=== PATIENT | female | born 1995 | race African-American/Black ===

== ENCOUNTER 2021-02-17 19:52 | Inpatient (IN) ==
[2021-02-17] MEDS ORDERED: MEPERIDINE 50 MG/1 ML VIAL IV PRN (20:02)
[2021-02-17] MEDS ORDERED: BUTORPHANOL 2 MG/ML VIAL IV PRN (20:02)
[2021-02-17] MEDS ORDERED: ONDANSETRON 4 MG/2 ML VIAL IV PRN (20:02)
[2021-02-17 20:21] LABS: Basophils % 0.2 % (0.0-0.8); Eosinophils % 0.2 % (0.00-10.9); Hematocrit 35.6 VOL% (35.7-47.0); Hemoglobin 11.2 GM/DL (12.0-16.0); Immature Granulocytes % 0.4 %; Immature Granulocytes Absolute 0.04 #; Lymphocytes # 1.8 10*3/uL (1.4-4.0); Lymphocytes % 19.2 % (21.3-54.2); Mean Corpuscular HGB Conc 31.5 GM/DL (32-36); Mean Corpuscular Volume 89.2 FL (87-102); Mean Platelet Volume 11.5 FL (9.6-12.0); Monocytes % 8.9 % (1.7-12.7); Neutrophils % 71.1 % (38.7-73.9); Platelet Count 221 T/CUMM (130-400); Red Blood Count 3.99 MC/CUMM (3.8-5.5); Red Cell Distribution Width 15.9 % (9.3-17.3); White Blood Count 9.5 T/CUMM (4-12)
[2021-02-17 20:48] LABS: Albumin 2.8 G/DL (3.4-5.0); Bilirubin,Total 0.5 MG/DL (0.2-1.0); Calcium 8.7 MG/DL (8.5-10.1); Osmolality,Calculated 268.8 MOS/KG (273-304); Potassium 3.5 MMOL/L (3.5-5.1); Total Protein 7.4 G/DL (5.0-7.5)
[2021-02-17] MEDS: LACTATED RINGERS 1,000 ML IV SCH (21:41)
[2021-02-17] MEDS ORDERED: FAMOTIDINE 20 MG/2 ML VIAL IV PRN (21:42)
[2021-02-17] MEDS ORDERED: CITRIC ACID/SODIUM CITRATE 30 ML UDCUP PO PRN (21:43)
[2021-02-18] MEDS: LACTATED RINGERS 1,000 ML IV SCH ×3 (02:07→10:27)
[2021-02-18] MEDS ORDERED: ePHEDrine 50 MG/ML VIAL IV PRN (03:00)
[2021-02-18] MEDS ORDERED: PROMETHAZINE 25 MG/1 ML VIAL IM ONE (03:00)
[2021-02-18] MEDS ORDERED: NALOXONE 0.4 MG/ML VIAL IV PRN (03:00)
[2021-02-18] MEDS ORDERED: fentaNYL 2 MCG/ROPIV 0.2% EPID 100 ML EPIDURAL SCH (03:00)
[2021-02-18] MEDS ORDERED: diphenhydrAMINE 50 MG/1 ML VIAL IV PRN ×2 (03:00)
[2021-02-18 04:48] LABS: Amorphous Crystals,Urine Few /HPF (Few); Bilirubin,Urine Negative (Negative); Blood, Urine Negative (Negative); Glucose,Urine (UA) Negative (Negative); Ketones,Urine 5 mg/dL (Negative); Mucus,Urine Few /LPF (Occasional); Nitrite,Urine Negative (Negative); Protein,Urine 30 MG/DL; RBC,Urine 1 /HPF (0-4); Squamous Epithelial Cell,Urine Occasional /HPF (0-10); Urine Appearance CLOUDY (Clear); Urine Color Yellow (Yellow); Urine Specific Gravity 1.017 (1.001-1.035)
[2021-02-18] MEDS ORDERED: TERBUTALINE 1 MG/1 ML VIAL ONE (05:22)
[2021-02-18] MEDS ORDERED: OXYTOCIN/LR 20 UNIT/1,000 ML BAG IV ONE ×2 (05:27→06:41)
[2021-02-18] MEDS ORDERED: METHYLERGONOVINE 0.2 MG/1 ML AMP ONE (05:27)
[2021-02-18] MEDS ORDERED: miSOPROStoL 200 MCG TABLET ONE (05:27)
[2021-02-18] MEDS ORDERED: TRANEXAMIC ACID 1,000 MG/10 ML VIAL ONE ×2 (05:27→05:28)
[2021-02-18] MEDS ORDERED: LIDOCAINE 1% 50 ML VIAL ONE (05:28)
[2021-02-18] MEDS ORDERED: CARBOPROST TROMETHAMINE 250 MCG/ML AMP IM ONE (05:28)
[2021-02-18] MEDS ORDERED: SODIUM CHLORIDE 0.9% 100 ML IV ONE (05:29)
[2021-02-18 06:10] LABS: Cord Venous Blood HCO3 20.4 MMOL/L; Cord Venous Blood PCO2 35.6 MMHG; Cord Venous Blood PO2 41.1 MMHG
[2021-02-18] MEDS ORDERED: DOCUSATE SODIUM 100 MG CAPSULE PO SCH (09:00)
[2021-02-18] MEDS ORDERED: IBUPROFEN 800 MG TABLET PO PRN (15:26)
[2021-02-18] MEDS ORDERED: BISACODYL 10 MG SUPP RECTAL PRN (20:42)
[2021-02-18] MEDS ORDERED: ACETAMINOPHEN 325 MG TABLET PO PRN (20:42)
[2021-02-18] MEDS ORDERED: MAGNESIUM HYDROXIDE SUSP 30 ML UDCUP PO PRN (20:42)
[2021-02-18] MEDS ORDERED: LACTATED RINGERS 1,000 ML IV SCH (21:00)
[2021-02-18] MEDS: DOCUSATE SODIUM 100 MG CAPSULE PO SCH (22:06)
[2021-02-18] MEDS: IBUPROFEN 800 MG TABLET PO PRN (22:40)
[2021-02-19 06:32] LABS: Basophils % 0.2 % (0.0-0.8); Eosinophils % 0.2 % (0.00-10.9); Immature Granulocytes % 0.5 %; Immature Granulocytes Absolute 0.06 #; Lymphocytes # 2.3 10*3/uL (1.4-4.0); Lymphocytes % 18.7 % (21.3-54.2); Mean Corpuscular HGB Conc 32.2 GM/DL (32-36); Mean Corpuscular Volume 88.1 FL (87-102); Mean Platelet Volume 11.8 FL (9.6-12.0); Monocytes % 6.3 % (1.7-12.7); Neutrophils % 74.1 % (38.7-73.9); Platelet Count 181 T/CUMM (130-400); White Blood Count 12.3 T/CUMM (4-12)
[2021-02-19 06:35] LABS: Hematocrit 28.9 VOL% (35.7-47.0); Hemoglobin 9.3 GM/DL (12.0-16.0); Red Blood Count 3.28 MC/CUMM (3.8-5.5)
[2021-02-19] MEDS: MULTIVITAMIN (PRENATAL) TABLET PO SCH (08:51)
[2021-02-19] MEDS: DOCUSATE SODIUM 100 MG CAPSULE PO SCH ×2 (08:51→20:40)
[2021-02-19] MEDS: IBUPROFEN 800 MG TABLET PO PRN ×2 (11:18→20:40)
[2021-02-20 07:31] VITALS: BP 119/73
[2021-02-20] MEDS: DOCUSATE SODIUM 100 MG CAPSULE PO SCH (08:54)
[2021-02-20] MEDS: MULTIVITAMIN (PRENATAL) TABLET PO SCH (08:54)
[2021-02-20] MEDS ORDERED: DIPH/TET/ACEL PERT BOOSTER VACCINE 0.5 ML VIAL IM ONE (10:00)
== END 2021-02-20 12:05 | disposition home or self-care (01) | DRG 560 ==
LOC: N.LDOUT 19:52 → N.LD 19:54 → N.OB 02-18 08:25
PROVIDERS: ADMIT Obstetrics & Gynecology; ATTEND Obstetrics & Gynecology